=== PATIENT | female | born 1975 | race Caucasian/White ===

== ENCOUNTER → 2017-06-13 | Outpatient (CLI) | payer OTHER ==
--- NOTE | 2017-06-13 14:37 | XR ---
Right shoulder HISTORY: Right shoulder pain 3 views of the right shoulder There is slight superior displacement of the distal clavicle in relation to the acromion. Hypertrophi c change present at the acromioclavicular joint. Bone mineralization and joint spaces otherwise maint ained. Right lung apex as visualized is normal. IMPRESSION: Correlate for acromioclavicular separation.
== END | disposition home or self-care (01) ==
LOC: RADXRMAIN 10:54
PROVIDERS: ATTEND Family Medicine
DX: M25.511 Pain in right shoulder (principal)

== ENCOUNTER → 2017-10-03 | Outpatient (CLI) | payer OTHER ==
--- NOTE | 2017-10-04 10:31 | MM ---
Reason for exam: screening (asymptomatic). Last mammogram was performed 2 years and 5 months ago. History: Stereotactic core biopsy of the right breast, 1997. Taking hormonal contraceptives for 27 years. Physical Findings: A clinical breast exam by your physician is recommended on an annual basis and results should be correlated with mammographic findings. MG Screening Mammo w CAD Bilateral CC and MLO view(s) were taken. Prior study comparison: April 24, 2015, bilateral MG screening mammo w CAD. September 14, 2010, mammogram, performed at [facility]. The breast tissue is heterogeneously dense. This may lower the sensitivity of mammography. Developing asymmetry left upper outer quadrant, MLO view appears smooth, CC view appears irregular, may be two asymmetries. Additional work up recommended. ASSESSMENT: Incomplete: need additional imaging evaluation, BI-RAD 0 RECOMMENDATION: Special view mammogram of the left breast. If lesion persists on supplemental views, image directed ultrasound is recommended. [facility] will attempt to contact patient to return for supplemental views and ultrasound if indicated.
== END | disposition home or self-care (01) ==
LOC: RADMAMWWP 07:16
PROVIDERS: ATTEND Obstetrics & Gynecology
DX: Z12.31 Encounter for screening mammogram for malignant neoplasm of breast (principal)
CPT/HCPCS: 77067

== ENCOUNTER → 2017-10-12 | Outpatient (CLI) | payer OTHER ==
--- NOTE | 2017-10-13 07:32 | MM ---
Reason for exam: additional evaluation requested from abnormal screening. Last mammogram was performed less than 1 month ago. History: Stereotactic core biopsy of the right breast, 1997. Taking hormonal contraceptives for 27 years. Physical Findings: Nurse did not find any significant physical abnormalities on exam. MG Work Up Mamm w CAD LT Spot compression CC, spot compression MLO, and LM view(s) were taken of the left breast. Prior study comparison: October 03, 2017, bilateral MG screening mammo w CAD. April 24, 2015, bilateral MG screening mammo w CAD. There are scattered fibroglandular densities. There is no discrete abnormality at CC compression. Mole marked left upper MLO view corresponds to MLO finding. These results were verbally communicated with the patient and result sheet given to the patient on 10/12/17. ASSESSMENT: Benign, BI-RAD 2 RECOMMENDATION: Return to routine screening mammogram schedule for both breasts. Manage patient on a clinical basis. Dimpling noted on right breast on clinical exam.
== END | disposition home or self-care (01) ==
LOC: RADMAMWWP 15:41
PROVIDERS: ATTEND Obstetrics & Gynecology
DX: R92.8 Other abnormal and inconclusive findings on diagnostic imaging of breast (principal)
CPT/HCPCS: 77065

== ENCOUNTER → 2018-03-23 | Outpatient (CLI) | payer OTHER ==
--- NOTE | 2018-03-25 10:18 | CT ---
EXAMINATION TYPE: CT chest w con DATE OF EXAM: 03/23/2018 COMPARISON: None HISTORY: Chest pain and shortness of breath. CT DLP: 440.7 mGycm Automated exposure control for dose reduction was used. CONTRAST: CT scan of the chest is performed with IV Contrast, patient injected with 100ml mL of Isovue M300. FINDINGS: LUNGS: The lungs are grossly clear, there is no concerning parenchymal mass or nodule identified. T here is no pleural effusion or pneumothorax seen. The tracheobronchial tree is patent. MEDIASTINUM: There are no greater than 1 cm hilar or mediastinal lymph nodes. No pericardial effusi on is seen. Thoracic aorta is of normal caliber. The heart is not enlarged. UPPER ABDOMEN: No significant abnormality appreciated. OTHER: Incidental focal eventration left hemidiaphragm. IMPRESSION: 1. No significant abnormality to account for the patient's symptoms.
== END | disposition home or self-care (01) ==
LOC: RADCTMAIN 16:32
PROVIDERS: ATTEND Physician Assistant Medical
DX: R06.02 Shortness of breath (principal)
CPT/HCPCS: 71260; Q9967

== ENCOUNTER → 2018-07-26 | Outpatient (CLI) | payer OTHER ==
--- NOTE | 2018-07-26 13:27 | XR ---
EXAMINATION TYPE: XR chest 2V DATE OF EXAM: 07/26/2018 COMPARISON: Chest CT 03/23/2018 HISTORY: Cough TECHNIQUE: Frontal and lateral views of the chest are obtained. FINDINGS: There is no focal air space opacity, pleural effusion, or pneumothorax seen. The cardiac silhouette size is within normal limits. The osseous structures are intact. Prominent lung volumes suggest underlying COPD. There is some bronchial wall thickening. Thoracic spondylosis is noted. Surg ical clips present in the right upper quadrant. IMPRESSION: Correlate for possible bronchitis, reactive airways disease. Follow-up as indicated.
== END | disposition home or self-care (01) ==
LOC: RADXRYALE 08:56
PROVIDERS: ATTEND Physician Assistant Medical
DX: R05 Cough (principal)
CPT/HCPCS: 71046

== ENCOUNTER → 2018-08-23 | Outpatient (CLI) | payer OTHER ==
--- NOTE | 2018-08-23 13:29 | US ---
EXAMINATION TYPE: US pelvis complete transvag DATE OF EXAM: 08/23/2018 COMPARISON: NONE CLINICAL HISTORY: N92.6 Irregular menstruation, unspecified. Ablation x 5 years, spotting TECHNIQUE: Transvaginal (TV) and Transabdominal (TA) . Transabdominal sonographic images of the pel vis were acquired. Transvaginal sonographic images were medically necessary to better assess the fol lowing anatomy: Endometrium, ovaries Date of LMP: Unknown, EXAM MEASUREMENTS: Uterus: 6.6 x 3.3 x 3.1 cm Endometrial Stripe: 0.3 cm Right Ovary: 2.3 x 1.2 x 1.1 cm 1. Uterus: Retroverted Appears heterogenous, no prominent masses or lesions visualized 2. Endometrium: Limited visualization. Possible fluid seen in endometrial canal at PAT. 3. Right Ovary: wnl, single follicle appearing lesion visualized 4. Left Ovary: Obscured by overlying bowel gas 5. Bilateral Adnexa: wnl 6. Posterior cul-de-sac: free fluid Cervix- multiple nabothian cysts with internal echoes visualized. Cervical canal appears thickened/ prominent. Fluid visualized within canal. IMPRESSION: 1. Uterine myometrium is heterogeneous which is nonspecific. Can occasionally be seen with diffuse fi broid change. However, no discrete fibroids are identified. 2. There is a small amount of fluid within the endometrial and cervical canal correlate for vaginal b leeding or discharge. Additionally, on the cervix appears prominent in size and possibly thickened re commend direct evaluation of the cervix to exclude mass.
--- NOTE | 2018-08-23 13:37 | US ---
EXAMINATION TYPE: US abdomen complete DATE OF EXAM: 08/23/2018 COMPARISON: NONE CLINICAL HISTORY: N92.6 Irregular menstruation, unspecified. RUQ pain, GB removed EXAM MEASUREMENTS: Liver Length: 13.2 cm CBD: 0.5 cm CHD: 0.5 cm Spleen: 8.6 cm Right Kidney: 9.1 x 4.8 x 4.4 cm Left Kidney: 9.8 x 3.6 x 5.3 cm Pancreas: Limited by overlying bowel gas Liver: wnl Gallbladder: Surgically absent Evidence for sonographic Varghese's sign: neg CBD: wnl CHD: wnl Spleen: wnl Right Kidney: wnl Left Kidney: wnl Upper IVC: wnl Abd Aorta: Limited visualization due to overlying bowel gas, No AAA as visualized. IMPRESSION: 1. Postcholecystectomy. No acute findings identified.
== END | disposition home or self-care (01) ==
LOC: RADUSWWP 12:09
PROVIDERS: ATTEND Physician Assistant Medical
DX: N85.8 Other specified noninflammatory disorders of uterus (principal); N92.6 Irregular menstruation, unspecified; R10.11 Right upper quadrant pain; Z90.49 Acquired absence of other specified parts of digestive tract
CPT/HCPCS: 76700; 76830; 76856

== ENCOUNTER → 2018-09-07 | Outpatient (CLI) | payer OTHER ==
--- NOTE | 2018-09-07 11:48 | XR ---
Right hand HISTORY: Pain and swelling, trauma to the fifth metacarpal 4 views of the right hand No comparisons There is soft tissue swelling at the level of the fifth metacarpal. Cortical irregularity is present at the proximal fifth metacarpal with associated lucency. No evident dislocation. IMPRESSION: Proximal fifth metacarpal fracture
== END | disposition home or self-care (01) ==
LOC: RADXRYALE 10:13
PROVIDERS: ATTEND Physician Assistant Medical
DX: S62.396A Other fracture of fifth metacarpal bone, right hand, initial encounter for closed fracture (principal)

== ENCOUNTER → 2018-09-10 | Outpatient (CLI) | payer OTHER ==
--- NOTE | 2018-09-10 11:27 | CT ---
EXAMINATION TYPE: CT abdomen pelvis w con DATE OF EXAM: 09/10/2018 HISTORY: Right upper quadrant pain CT DLP: 1628.9mGycm Automated Exposure Control for Dose Reduction was Utilized. CONTRAST: CT scan of the abdomen and pelvis is performed with IV Contrast, patient injected with 80 mL of Isovu e 300. COMPARISON: 05/31/2013 CT and pelvic ultrasound dated 08/23/2018. FINDINGS: LUNG BASES: Very trace right pleural effusion is appreciated. Remainder of the lungs are grossly unre markable as visualized.. LIVER/GB: No significant abnormality is appreciated within the liver. Gallbladder surgically absent PANCREAS: No significant abnormality is seen. SPLEEN: No significant abnormality is seen. No splenomegaly. ADRENALS: No significant abnormality is seen. KIDNEYS: Kidneys enhance and excrete symmetrically without hydronephrosis. BOWEL: There is a small paraesophageal hernia seen left lateral the distal esophagus with retained co ntrast in the hernia defect and distal esophagus. UTERUS/ADNEXA: Again there is bulkiness of the cervix on coronal imaging and direct visualization is recommended. LYMPH NODES: No greater than 1cm abdominal or pelvic lymph nodes are appreciated. OSSEOUS STRUCTURES: Mild degenerative changes of the spine are present. IMPRESSION: 1. Small paraesophageal hiatal hernia with contrast in the hernia sac and distal esophagus that may b e retained or relate to gastroesophageal reflux. 2. Redemonstration of prominence of the cervix. Direct visualization is again recommended to exclude cervical neoplasm. 3. Very trace right pleural effusion.
== END | disposition home or self-care (01) ==
LOC: RADCTMAIN 07:44
PROVIDERS: ATTEND Family Medicine
DX: K44.9 Diaphragmatic hernia without obstruction or gangrene (principal); D72.828 Other elevated white blood cell count; R10.11 Right upper quadrant pain; R19.01 Right upper quadrant abdominal swelling, mass and lump; Z01.812 Encounter for preprocedural laboratory examination
CPT/HCPCS: 82565; 84520; 74177; 36415; Q9967 ×2

== ENCOUNTER → 2018-10-03 | Outpatient (CLI) | payer OTHER ==
--- NOTE | 2018-10-03 17:02 | XR ---
EXAMINATION TYPE: XR hand complete RT DATE OF EXAM: 10/03/2018 COMPARISON: 09/07/2018 HISTORY: Follow-up fracture fifth metacarpal TECHNIQUE: Three views are submitted. FINDINGS: A persistent displaced fracture base proximal phalanx fifth digit unchanged in appearance. No callus formation. Soft tissue edema persists. Remaining osseous structures intact. IMPRESSION: 1. Persistent displaced fracture base proximal phalanx fifth digit there may be slight interval incre ase in the amount of displacement relative to the prior exam. No significant callus formation.
== END | disposition home or self-care (01) ==
LOC: RADXRYALE 15:03
PROVIDERS: ATTEND Physician Assistant Medical
DX: S62.616A Displaced fracture of proximal phalanx of right little finger, initial encounter for closed fracture (principal)

== ENCOUNTER → 2018-11-28 | Outpatient (CLI) | payer OTHER ==
--- NOTE | 2018-11-28 14:08 | US ---
EXAMINATION TYPE: US thyroid st tissue head/neck DATE OF EXAM: 11/28/2018 COMPARISON: NONE CLINICAL HISTORY: R94.6 Abnormal results of thyroid function studies. Abnormal thyroid function, fati yamilet, weight gain, difficulty swallowing GLAND SIZE: Right Lobe: 3.3 x 1.3 x 1.2 cm Overall Parenchyma: homogenous Left Lobe: 3.3 x 1.2 x 1.4 cm Overall Parenchyma: homogeneous Isthmus Thickness: 0.2cm NODULES RIGHT: # of nodules measured on right: 0 LEFT: # of nodules measured on left: 0 ISTHMUS: # of nodules measured in the isthmus: 0 Bilateral neck scanned, no evidence of lymphadenopathy. IMPRESSION: Small thyroid gland, no discrete thyroid nodule.
== END | disposition home or self-care (01) ==
LOC: RADUSMAIN 08:03
PROVIDERS: ATTEND Family Medicine
DX: R94.6 Abnormal results of thyroid function studies (principal)
CPT/HCPCS: 76536

== ENCOUNTER → 2021-07-28 | Outpatient (CLI) | payer OTHER ==
--- NOTE | 2021-07-29 14:03 | MM ---
Reason for exam: screening (asymptomatic). Last mammogram was performed 3 years and 10 months ago. History: Patient is postmenopausal. Stereotactic core biopsy of the right breast, 1997. Taking hormonal contraceptives for 27 years. Physical Findings: A clinical breast exam by your physician is recommended on an annual basis and results should be correlated with mammographic findings. MG 3D Screening Mammo W/Cad Bilateral CC and MLO view(s) were taken. Prior study comparison: October 12, 2017, left breast MG work up mamm w CAD LT. October 03, 2017, bilateral MG screening mammo w CAD. The breast tissue is heterogeneously dense. This may lower the sensitivity of mammography. There is no discrete abnormality. No significant changes when compared with prior studies. ASSESSMENT: Negative, BI-RAD 1 RECOMMENDATION: Routine screening mammogram of both breasts in 1 year.
== END | disposition home or self-care (01) ==
LOC: RADMAMWWP 07:24
PROVIDERS: ATTEND Family Medicine
DX: Z12.31 Encounter for screening mammogram for malignant neoplasm of breast (principal); Z78.0 Asymptomatic menopausal state
CPT/HCPCS: 77063; 77067

== ENCOUNTER 2021-11-06 21:17 | Emergency (ER) | payer BC, OTHER ==
[2021-11-06] MEDS ORDERED: HYDROcodone/APAP 5-325MG 1 EACH TAB PO STA (22:48)
--- NOTE | 2021-11-06 23:21 | ED ---
General Adult HPI - General Chief complaint: Dental/Oral Stated complaint: Dental Pain Time Seen by Provider: 11/06/21 21:50 Source: patient, RN notes reviewed Mode of arrival: ambulatory Limitations: no limitations - History of Present Illness Initial comments: 46-year-old female presents to the emergency department with complaints of dental pain, onset 2 hours prior to arrival. Patient states she has has a broken tooth, though states it has been this way for several months without issue. Patient states that the nerve root is now exposed causing her discomfort. States she has been in between jobs and has not been to the dentist recently. Denies any fever, swelling, trismus, difficulty swallowing, or difficulty breathing. - Related Data Home Medications Medication Instructions Recorded Confirmed Zolpidem Tartrate [Ambien Cr] 6.25 mg PO HS PRN 04/24/14 06/18/15 Docusate [Colace] 100 mg PO DAILY 04/25/14 06/18/15 Baclofen 5 mg PO HS 04/02/15 06/18/15 Levonorgestrel/Ethin.estradiol 1 tab PO DAILY 04/23/15 06/18/15 [Altavera-28 Tablet] nadoloL [Nadolol] 40 mg PO HS 04/23/15 06/18/15 Naproxen 500 mg PO DAILY PRN 04/27/15 06/18/15 Omeprazole 40 mg PO AC-BRKFST 04/27/15 06/18/15 Previous Rx's Medication Instructions Recorded HYDROcodone/APAP 5-325MG [[place] 5] 1 each PO Q6HR PRN #6 tab 11/06/21 Ibuprofen [Motrin] 600 mg PO Q8HR PRN #20 tab 11/06/21 Allergies Allergy/AdvReac Type Severity Reaction Status Date / Time Penicillins Allergy Unknown Verified 11/06/21 21:22 Childhood Sulfa (Sulfonamide Allergy Unknown Verified 11/06/21 21:22 Antibiotics) Childhood Review of Systems ROS Statement: Those systems with pertinent positive or pertinent negative responses have been documented in the HPI. ROS Other: All systems not noted in ROS Statement are negative. Past Medical History Additional Past Medical History / Comment(s): hx rapid heart beat History of Any Multi-Drug Resistant Organisms: None Reported Past Surgical History: Cholecystectomy, Hernia Repair, Hysterectomy, Uterine Ablation Additional Past Surgical History / Comment(s): LAPAROSCOPIES. D & C. COLONOSCOPY. HEMORRHOIDECTOMY. SPHINCTEROTOMY. FISTULOTOMY. FISTULOTOMY Past Anesthesia/Blood Transfusion Reactions: Motion Sickness, Postoperative Nausea & Vomiting (PONV) Past Psychological History: Depression Smoking Status: Never smoker Past Alcohol Use History: Occasional Past Drug Use History: None Reported - Past Family History Mother History Unknown: Yes Father Additional Family Medical History / Comment(s): "HEART ISSUES" General Exam Limitations: no limitations General appearance: alert, in distress (Well-developed, well-nourished female in moderate distress due to pain. Initial temperature 98.3, pulse 88, respirations 18, blood pressure 112/76, pulse ox 97% on room air.) Head exam: Present: atraumatic, normocephalic, normal inspection Eye exam: Present: normal appearance. Absent: scleral icterus, conjunctival injection, periorbital swelling, periorbital tenderness ENT exam: Present: mucous membranes moist Expanded Teeth exam: Present: dental caries (Multiple dental caries), dental tenderness # (13 & 14), other (No evidence of infection or abscess; no facial swelling) Throat exam: normal inspection Neck exam: Present: normal inspection, full ROM. Absent: lymphadenopathy Respiratory exam: Present: normal lung sounds bilaterally. Absent: respiratory distress, wheezes, rales, rhonchi, stridor Cardiovascular Exam: Present: regular rate, normal rhythm, normal heart sounds. Absent: systolic murmur, diastolic murmur, rubs, gallop, clicks GI/Abdominal exam: Present: soft, normal bowel sounds. Absent: distended, tenderness, guarding, rebound, rigid Neurological exam: Present: alert, oriented X3, normal gait Psychiatric exam: Present: anxious (Patient appears anxious and is concerned about achieving appropriate follow-up as she is again dental coverage at this time) Skin exam: Present: warm, dry, intact, normal color Course Vital Signs 11/06/21 11/06/21 21:22 23:42 Temperature 98.3 F 98.1 F Pulse Rate 88 82 Respiratory 18 20 Rate Blood Pressure 112/76 116/73 O2 Sat by Pulse 97 98 Oximetry Medical Decision Making - Medical Decision Making This is a 46-year-old female who presents to the emergency department for evaluation of dental pain. Upon exam, patient appears anxious and uncomfortable. She is tearful as she discusses her dental pain and her anticipated difficulty achieving follow-up care as she does not have dental insurance at this time. She has multiple dental caries; tooth #13 appears decayed, though there is no evidence of infectious process. She was given a dose of [place] while present in the emergency department. She will be prescribed Motrin and a very limited supply of [place] to treat her pain. No antibiotic was prescribed as this does not appear to be infectious in nature. She is implored to make arrangements to see a dentist as soon as possible. She was provided with the [facility] for local follow-up. Return parameters were discussed in detail. Patient verbalizes understanding and agrees with this plan. Attending: Boo. Disposition Clinical Impression: Pain, dental Disposition: HOME SELF-CARE Condition: Stable Instructions (If sedation given, give patient instructions): Toothache (ED) Additional Instructions: Take Motrin as needed for mild discomfort. [place] is for more severe pain. Please follow-up with your dentist as soon as possible. Return to the emergency department with any new, worsening, or concerning symptoms. [address] [id number]. Prescriptions: Ibuprofen [Motrin] 600 mg PO Q8HR PRN #20 tab PRN Reason: Pain HYDROcodone/APAP 5-325MG [[place] 5] 1 each PO Q6HR PRN #6 tab PRN Reason: Pain Is patient prescribed a controlled substance at d/c from ED?: Yes When asked, does pt state using other controlled substances?: No If prescribed controlled substance>3 days was MAPS reviewed?: Prescribed <3 Days If opioid is for acute pain is fill amount 7 days or less?: Yes If Rx opioid, was Start Talking consent form obtained?: Yes Referrals: Tyson Branch DO [Primary Care Provider] - 1-2 days Time of Disposition: 23:20 Decision Time: 23:20
[2021-11-06 23:43] VITALS: BP 116/73; PULSE 82; RESP 20; TEMP 98.1
== END 2021-11-06 23:42 | disposition home or self-care (01) ==
LOC: EC 21:17
DX: K02.9 Dental caries, unspecified (principal); F32.A Depression, unspecified; Z79.899 Other long term (current) drug therapy
CPT/HCPCS: 99282

== ENCOUNTER → 2022-03-23 | Outpatient (CLI) | payer MEDICAID ==
[2022-03-23 11:31] LABS: Basophils % (A) 0.5 %; Eosinophils # (A) 0.14 X 10*3/uL (0.04-0.35); Eosinophils % (A) 1.5 %; HCT 38.9 % (37.2-46.3); Lymphocytes # (A) 3.34 X 10*3/uL (0.90-5.00); Lymphocytes % (A) 36.7 %; MCH 30.5 pg (27.0-32.0); MCHC 33.4 g/dL (32.0-37.0); MCV 91.3 fL (80.0-97.0); Monocytes # (A) 0.51 X 10*3/uL (0.20-1.00); Monocytes % (A) 5.6 %; Neutrophils # (A) 5.03 X 10*3/uL (1.80-7.70); Neutrophils % (A) 55.4 %; Platelet Count 321 X 10*3/uL (140-440); RBC 4.26 X 10*6/uL (4.10-5.20); RDW 12.8 % (11.5-14.5)
[2022-03-23 11:32] LABS: ALT 7 U/L (8-44); AST 16 U/L (13-35); African American GFR (CKD) 88.2 (60.0-200.0); Albumin 3.8 g/dL (3.8-4.9); Albumin/Globulin Ratio 1.27 (1.60-3.17); Alkaline Phosphatase 31 U/L (41-126); Basophils # (A) 0.05 X 10*3/uL (0.00-0.10); Blood Urea Nitrogen 9.9 mg/dL (9.0-27.0); Calcium 9.5 mg/dL (8.7-10.3); Carbon Dioxide 24.1 mmol/L (20.0-27.5); Chloride 105 mmol/L (96-109); Chol/HDL Ratio 2.27 Ratio; Glucose 100 mg/dL (70-110); Immature Grans, Automated 0.3 %; LDL Cholesterol,Calculated 68.8 mg/dL (0.0-131.0); NRBC Per 100 WBC 0 /100 WBCS (0.0-0.0); Non-African American GFR(CKD) 76.1 (60.0-200.0); Potassium 4.6 mmol/L (3.5-5.5); Sodium 139 mmol/L (135-145); Total Protein 6.8 g/dL (6.2-8.2); VLDL Calculation 16.68 mg/dL (5.00-40.00)
== END | disposition home or self-care (01) ==
LOC: LABWHC1 07:44
PROVIDERS: ATTEND Physician Assistant Medical
DX: Z00.00 Encounter for general adult medical examination without abnormal findings (principal); Z13.220 Encounter for screening for lipoid disorders; Z13.228 Encounter for screening for other metabolic disorders; Z13.29 Encounter for screening for other suspected endocrine disorder; F41.9 Anxiety disorder, unspecified; N80.9 Endometriosis, unspecified; E66.01 Morbid (severe) obesity due to excess calories
CPT/HCPCS: 36415; 80053; 80061; 84439; 84443; 85025

== ENCOUNTER → 2022-08-09 | Outpatient (CLI) | payer MEDICAID ==
[2022-08-09 23:12] LABS: Estradiol 57.4 pg/mL
== END | disposition home or self-care (01) ==
LOC: LABWHC1 11:11
PROVIDERS: ATTEND Obstetrics & Gynecology
DX: N95.1 Menopausal and female climacteric states (principal)
CPT/HCPCS: 36415; 82670; 84144; 84403; 84443

== ENCOUNTER → 2022-08-19 | Outpatient (CLI) | payer MEDICAID ==
--- NOTE | 2022-08-19 07:57 | MM ---
Reason for Exam: Screening (asymptomatic). Last mammogram was performed 1 year(s) and 1 month(s) ago. Patient History: Menarche at age 11. First Full-Term at age 21. Left ovary removed at age 44. Right ovary removed at age 44. Hysterectomy at age 44. Postmenopausal. Patient used Hormonal Contraceptives for 27 years. 1997, Stereotactic Core Biopsy on the Right side. Risk Values: Rachael 5 year model risk: 1.1%. NCI Lifetime model risk: 9.8%. Prior Study Comparison: 10/03/2017 Bilateral Screening Mammogram, [facility]. 10/12/2017 Left Diagnostic Mammogram, [facility]. 07/28/2021 Bilateral Screening Mammogram, [facility]. Tissue Density: There are scattered fibroglandular densities. Findings: Analyzed By CAD. There is no suspicious group of microcalcifications or new suspicious mass in either breast. Overall Assessment: Negative, BI-RAD 1 Management: Screening Mammogram of both breasts in 1 year. A clinical breast exam by your physician is recommended on an annual basis and results should be correlated with mammographic findings. Electronically signed and approved by: Bebo Taylor M.D.
== END | disposition home or self-care (01) ==
LOC: RADMAMWWP 06:52
PROVIDERS: ATTEND Family Medicine
DX: Z12.31 Encounter for screening mammogram for malignant neoplasm of breast (principal); Z78.0 Asymptomatic menopausal state
CPT/HCPCS: 77063; 77067

== ENCOUNTER 2023-01-16 10:09 | Emergency (ER) | payer MEDICAID ==
[2023-01-16 10:29] VITALS: BP 108/75; PULSE 78; RESP 18; TEMP 98
--- NOTE | 2023-01-16 10:54 | ED ---
Upper Extremity HPI - General Chief Complaint: Extremity Injury, Upper Stated Complaint: R wrist injury Time Seen by Provider: 01/16/23 10:30 Source: patient, RN notes reviewed Mode of arrival: ambulatory Limitations: no limitations - History of Present Illness Initial Comments: This is a 47-year-old female who presents to the emergency department for right wrist pain. Patient was lifting her nephew up at the park yesterday, when she twisted her right wrist wrong. She has since had increasing pain to this area. She is taking Advil with no relief in symptoms. She does report concerns associated with a previous injury to this area. Denies any fevers, chills, sore throat, cough, dyspnea, chest pain, palpitations, abdominal pain, nausea, vomiting, diarrhea, back pain, or headaches. MD Complaint: Injury to:: right, wrist Onset/Timin -: days(s) - Related Data Home Medications Medication Instructions Recorded Confirmed Zolpidem Tartrate [Ambien Cr] 6.25 mg PO HS PRN 04/24/14 06/18/15 Docusate [Colace] 100 mg PO DAILY 04/25/14 06/18/15 Baclofen 5 mg PO HS 04/02/15 06/18/15 Levonorgestrel/Ethin.estradiol 1 tab PO DAILY 04/23/15 06/18/15 [Altavera-28 Tablet] nadoloL [Nadolol] 40 mg PO HS 04/23/15 06/18/15 Naproxen 500 mg PO DAILY PRN 04/27/15 06/18/15 Omeprazole 40 mg PO AC-BRKFST 04/27/15 06/18/15 Previous Rx's Medication Instructions Recorded HYDROcodone/APAP 5-325MG [[place] 5] 1 each PO Q6HR PRN #6 tab 11/06/21 Ibuprofen [Motrin] 600 mg PO Q8HR PRN #20 tab 11/06/21 Allergies Allergy/AdvReac Type Severity Reaction Status Date / Time Penicillins Allergy Unknown Verified 01/16/23 10:29 Childhood Sulfa (Sulfonamide Allergy Unknown Verified 01/16/23 10:29 Antibiotics) Childhood Review of Systems ROS Statement: Those systems with pertinent positive or pertinent negative responses have been documented in the HPI. ROS Other: All systems not noted in ROS Statement are negative. Past Medical History Additional Past Medical History / Comment(s): hx rapid heart beat History of Any Multi-Drug Resistant Organisms: None Reported Past Surgical History: Cholecystectomy, Hernia Repair, Hysterectomy, Uterine Ablation Additional Past Surgical History / Comment(s): LAPAROSCOPIES. D & C. COLONOSCOPY. HEMORRHOIDECTOMY. SPHINCTEROTOMY. FISTULOTOMY. FISTULOTOMY Past Anesthesia/Blood Transfusion Reactions: Motion Sickness, Postoperative Nausea & Vomiting (PONV) Past Psychological History: Depression Smoking Status: Never smoker Past Alcohol Use History: Occasional Past Drug Use History: None Reported - Past Family History Mother History Unknown: Yes Father Additional Family Medical History / Comment(s): "HEART ISSUES" General Exam Limitations: no limitations General appearance: alert, in no apparent distress Head exam: Present: atraumatic, normocephalic, normal inspection Respiratory exam: Present: normal lung sounds bilaterally. Absent: respiratory distress, wheezes, rales, rhonchi, stridor Cardiovascular Exam: Present: regular rate, normal rhythm, normal heart sounds. Absent: systolic murmur, diastolic murmur, rubs, gallop, clicks Extremities exam: Present: other (Tenderness to palpation over the lateral aspect of the right wrist. No overlying deformities, swelling, or ecchymosis. Range of motion is limited by pain. 2+ radial pulses.) Neurological exam: Present: alert, oriented X3, CN II-XII intact Psychiatric exam: Present: normal affect, normal mood Skin exam: Present: warm, dry, intact, normal color. Absent: rash Course Vital Signs 01/16/23 10:26 Temperature 98 F Pulse Rate 78 Respiratory 18 Rate Blood Pressure 108/75 O2 Sat by Pulse 98 Oximetry Procedures - Orthopedic Splinting/Casting Injury #1 Side: right Upper Extremity Injury Location: wrist Upper Extremity Immobilizer: volar splint Medical Decision Making - Medical Decision Making This is a 47-year-old female who presents to the emergency department for right wrist pain. Was pt. sent in by a medical professional or institution? @ -No Did you speak to anyone other than the patient for history? @ -No Did you review nursing and triage notes? @ -Yes, and I agree, it is accurate with regards to the patient's symptoms. Were old charts reviewed? @ -No Differential Diagnosis? @ -Differential Wrist Pain: Fracture, dislocation, contusion, sprain, this is not meant to be an all- inclusive list. EKG interpreted by me (3pts min.)? @ -Not obtained X-rays interpreted by me (1pt min.)? @ -X-ray of the right wrist obtained. My interpretation identifies a questionable lucency along the ulnar styloid process. CT interpreted by me (1pt min.)? @ -Not obtained U/S interpreted by me (1pt. min.)? @ -Not obtained What testing was considered but not performed? (CT, X-rays, U/S, labs)? Why? @ -None What meds were considered but not given? Why? @ -None Did you discuss the management of the patient with other professionals? @ -No Did you reconcile home meds? @ -No Was smoking cessation discussed for >3mins.? @ -No Was critical care preformed (if so, how long)? @ -No Were there social determinants of health that impacted care today? How? (Homelessness, low income, unemployed, alcoholism, drug addiction, transportation, low edu. Level, literacy, decrease access to med. care, usp, rehab)? @ -No Was there de-escalation of care discussed even if they declined? (Discuss DNR or withdrawal of care, Hospice)? @ -No What co-morbidities impacted this encounter? (DM, HTN, Smoking, COPD, CAD, Cancer, CVA, Hep., AIDS, mental health diagnosis, sleep apnea, morbid obesity)? @ -None Was patient admitted / discharged? @ -Discharged. X-ray of the right wrist obtained revealing a lucency through the ulnar styloid process that may be projectional versus related to a fracture. This is where the patient is experiencing tenderness, and she was thus put in a volar splint. Advised ibuprofen and Tylenol as needed for pain relief and applying ice for 15-20 minutes every 2-3 hours. Orthopedic follow-up provided as well. Undiagnosed new problem with uncertain prognosis? @ -None Drug Therapy requiring intensive monitoring for toxicity (Heparin, Nitro, Insulin, Cardizem)? @ -None Were any procedures done? @ -Volar splint application Diagnosis/symptom? @ -Right ulnar styloid fracture Acute, or Chronic, or Acute on Chronic? @ -Acute Uncomplicated (without systemic symptoms) or Complicated (systemic symptoms)? @ -Uncomplicated Side effects of treatment? @ -None Exacerbation, Progression, or Severe Exacerbation] @ -Not applicable Poses a threat to life or bodily function? @ -May limit her use of the right hand Return precautions reviewed in depth, the patient is instructed to return to the emergency department with any new, worsening, or concerning symptoms. Patient verbalized understanding. This case was discussed in detail with the attending ED physician, Dr. Arreguin. Presentation, findings, and treatment plan discussed in detail as well. - Radiology Data Radiology results: report reviewed, image reviewed Disposition Clinical Impression: Fracture of right ulnar styloid Disposition: HOME SELF-CARE Instructions (If sedation given, give patient instructions): Wrist Fracture in Adults (ED), Splint Care (ED) Additional Instructions: Return to the emergency department with any new, worsening, or concerning symptoms. Alternate with ibuprofen and Tylenol as needed for pain relief. Apply ice for 15-20 minutes every 2-3 hours. Follow up with orthopedics as listed below. Is patient prescribed a controlled substance at d/c from ED?: No Referrals: Tyson Branch DO [Primary Care Provider] - 1-2 days Apoorva Berg DO [Doctor of Osteopathic Medicine] - 1-2 days
--- NOTE | 2023-01-16 11:03 | XR ---
EXAMINATION TYPE: XR wrist complete RT DATE OF EXAM: 01/16/2023 10:54 AM INDICATION: Patient age:Female; 47 years old; Reason for study: Pain after injury; COMPARISON: 10/03/2018 TECHNIQUE: right wrist was examined in the. Frontal, navicular, lateral, and oblique. FINDINGS: No acute osseous pathology, joint dislocation, or joint effusion. No evidence of any soft tissue swelling is seen. There is a lucency through the ulnar styloid process which is seen on one vi ew only. IMPRESSION: Lucency through the ulnar styloid process felt to be projectional. Correlate with point tenderness. O therwise no acute fractures definitively visualized.
[2023-01-16] MEDS ORDERED: IBUPROFEN 600 MG STARTER PACK 4 TAB BTL PO STA (11:32)
[2023-01-16] MEDS ORDERED: ACET/COD 300 MG/30 MG STARTER PACK 6 TAB BTL PO STA (11:32)
== END 2023-01-16 11:48 | disposition home or self-care (01) ==
LOC: EC 10:09
DX: S52.611A Displaced fracture of right ulna styloid process, initial encounter for closed fracture (principal); F32.A Depression, unspecified; Z88.0 Allergy status to penicillin; Z88.2 Allergy status to sulfonamides; Z79.899 Other long term (current) drug therapy; X50.9XXA Other and unspecified overexertion or strenuous movements or postures, initial encounter
CPT/HCPCS: 29515; 99283

== ENCOUNTER 2023-06-01 09:54 | Emergency (ER) | payer MEDICAID ==
[2023-06-01 10:31] LABS: Basophils # (A) 0.1 k/uL (0-0.2); Basophils % (A) 1 %; Eosinophils # (A) 0.3 k/uL (0-0.7); Eosinophils % (A) 2 %; HCT 41.2 % (34.0-46.0); HGB 13.6 gm/dL (11.4-16.0); Lymphocytes # (A) 4.1 k/uL (1.0-4.8); Lymphocytes % (A) 31 %; MCH 30.6 pg (25.0-35.0); MCHC 33.1 g/dL (31.0-37.0); MCV 92.6 fL (80.0-100.0); Mean Platelet Volume 7.9; Monocytes # (A) 0.8 k/uL (0-1.0); Monocytes % (A) 6 %; Neutrophils # (A) 7.8 k/uL (1.3-7.7); Neutrophils % (A) 59 %; Platelet Count 357 k/uL (150-450); RBC 4.45 m/uL (3.80-5.40); RDW 13.2 % (11.5-15.5); WBC 13.2 k/uL (3.8-10.6)
[2023-06-01 10:44] LABS: INR 0.9 (<1.2); Partial Thromboplastin Time 22.2 sec (22.0-30.0); Prothrombin Time 10.1 sec (10.0-12.5)
[2023-06-01 10:50] LABS: ALT 23 U/L (4-34); AST 21 U/L (14-36); African American GFR (CKD) >90 (>60 ml/min/1.73 sqM); Albumin 4.1 g/dL (3.5-5.0); Alkaline Phosphatase 41 U/L (38-126); Anion Gap 4 mmol/L; Blood Urea Nitrogen 14 mg/dL (7-17); Calcium 9.5 mg/dL (8.4-10.2); Carbon Dioxide 31 mmol/L (22-30); Chloride 102 mmol/L (98-107); Glucose 77 mg/dL (74-99); Non-African American GFR(CKD) >90 (>60 ml/min/1.73 sqM); Potassium 4.5 mmol/L (3.5-5.1); Sodium 137 mmol/L (137-145); Total Bilirubin 0.5 mg/dL (0.2-1.3); Total Protein 7.4 g/dL (6.3-8.2)
[2023-06-01 10:58] VITALS: RESP 20; TEMP 98.1
--- NOTE | 2023-06-01 11:08 | XR ---
EXAMINATION TYPE: XR chest 2V DATE OF EXAM: 06/01/2023 COMPARISON: 07/26/2018 TECHNIQUE: PA and lateral views submitted. HISTORY: Chest pain FINDINGS: The lungs are clear and there is no pneumothorax, pleural effusion, or focal pneumonia. Heart size normal and no overt failure. Osseous structures demonstrate hypertrophic and degenerative changes of the spine. Biapical pleural thickening. Hyperexpansion compatible with COPD. Surgical clips in the ri ght upper quadrant. Hyperinflation suggests COPD. IMPRESSION: 1. No acute process.
[2023-06-01 12:15] LABS: Appearance,Urine Clear (Clear); Bilirubin,Urine Negative (Negative); Blood,Urine Negative (Negative); Color,Urine Colorless; Glucose,Urine (UA) Negative (Negative); Ketones,Urine Negative (Negative); Leukocyte Esterase,Urine Negative (Negative); Nitrite,Urine Negative (Negative); PH, Urine 6.5 (5.0-8.0); Protein,Urine Negative (Negative); Specific Gravity,Urine 1.004 (1.001-1.035); Urobilinogen,Urine <2.0 mg/dL (<2.0)
--- NOTE | 2023-06-01 12:19 | ED ---
Chest Pain HPI - General Chief Complaint: Chest Pain Stated Complaint: Dizziness, Blurred Vision Time Seen by Provider: 06/01/23 10:15 Source: patient, RN notes reviewed Mode of arrival: ambulatory Limitations: no limitations - History of Present Illness Initial Comments: 48-year-old female presents emergency Department chief complaint of not feeling well. She states she is at work states that she started feeling like an out of body experience states that she just lightheaded states that she has some heart racing tingling all over when she started doing things about possible stroke. She is currently she feels greatly improved she has no current symptoms. Denies any prior. Dishes no lung disorders. - Related Data Home Medications Medication Instructions Recorded Confirmed Zolpidem Tartrate [Ambien Cr] 6.25 mg PO HS PRN 04/24/14 06/18/15 Docusate [Colace] 100 mg PO DAILY 04/25/14 06/18/15 Baclofen 5 mg PO HS 04/02/15 06/18/15 Levonorgestrel/Ethin.estradiol 1 tab PO DAILY 04/23/15 06/18/15 [Altavera-28 Tablet] nadoloL [Nadolol] 40 mg PO HS 04/23/15 06/18/15 Naproxen 500 mg PO DAILY PRN 04/27/15 06/18/15 Omeprazole 40 mg PO AC-BRKFST 04/27/15 06/18/15 Previous Rx's Medication Instructions Recorded HYDROcodone/APAP 5-325MG [[place] 5] 1 each PO Q6HR PRN #6 tab 11/06/21 Ibuprofen [Motrin] 600 mg PO Q8HR PRN #20 tab 11/06/21 Allergies Allergy/AdvReac Type Severity Reaction Status Date / Time Penicillins Allergy Unknown Verified 06/01/23 10:10 Childhood Sulfa (Sulfonamide Allergy Unknown Verified 06/01/23 10:10 Antibiotics) Childhood Review of Systems ROS Statement: Those systems with pertinent positive or pertinent negative responses have been documented in the HPI. ROS Other: All systems not noted in ROS Statement are negative. EKG Findings - EKG Comments: EKG Findings:: EK:19 sinus rhythm rate of 69 SC 131/77 QT/ QTC 365/384 - EKG Results: EKG: interpreted by LILLY Past Medical History Additional Past Medical History / Comment(s): hx rapid heart beat History of Any Multi-Drug Resistant Organisms: None Reported Past Surgical History: Cholecystectomy, Hernia Repair, Hysterectomy, Uterine Ablation Additional Past Surgical History / Comment(s): LAPAROSCOPIES. D & C. COLONOSCOPY. HEMORRHOIDECTOMY. SPHINCTEROTOMY. FISTULOTOMY. FISTULOTOMY Past Anesthesia/Blood Transfusion Reactions: Motion Sickness, Postoperative Nausea & Vomiting (PONV) Past Psychological History: Depression Smoking Status: Never smoker Past Alcohol Use History: Occasional Past Drug Use History: None Reported - Past Family History Mother History Unknown: Yes Father Additional Family Medical History / Comment(s): "HEART ISSUES" General Exam Limitations: no limitations General appearance: alert, in no apparent distress Head exam: Present: atraumatic, normocephalic, normal inspection Eye exam: Present: normal appearance, PERRL, EOMI. Absent: scleral icterus, conjunctival injection, periorbital swelling ENT exam: Present: normal exam, normal oropharynx, mucous membranes moist Neck exam: Present: normal inspection, full ROM. Absent: tenderness, meningismus, lymphadenopathy Respiratory exam: Present: normal lung sounds bilaterally. Absent: respiratory distress, wheezes, rales, rhonchi, stridor Cardiovascular Exam: Present: regular rate, normal rhythm, normal heart sounds. Absent: systolic murmur, diastolic murmur, rubs, gallop, clicks GI/Abdominal exam: Present: soft, normal bowel sounds. Absent: distended, tenderness, guarding, rebound, rigid Course Vital Signs 06/01/23 06/01/23 06/01/23 10:06 10:10 11:10 Temperature 98.1 F Pulse Rate 72 68 71 Pulse Rate [ 70 Commercial Service Technician ] Respiratory 18 20 20 Rate Blood Pressure 119/83 118/68 122/93 O2 Sat by Pulse 98 98 96 Oximetry Chest Pain MDM - MDM Was pt. sent in by a medical professional or institution (, PA, AUTOMOBILE AND PROPERTY UNDERWRITER, urgent care, hospital, or assisted...) When possible be specific @ -No Did you speak to anyone other than the patient for history (EMS, parent, family, police, friend...)? What history was obtained from this source @ -No Did you review nursing and triage notes (agree or disagree)? Why? @ -I reviewed and agree with nursing and triage notes Were old charts reviewed (outside hosp., previous admission, EMS record, old EKG, old radiological studies, urgent care reports/EKG's, assisted records)? Report findings @ -No old charts were reviewed Differential Diagnosis (chest pain, altered mental status, abdominal pain women, abdominal pain men, vaginal bleeding, weakness, fever, dyspnea, syncope, headache, dizziness, GI bleed, back pain, seizure, CVA, palpatations, mental health, musculoskeletal)? @ -Differential Chest Pain: Stable Angina, Unstable Angina, STEMI, NSTEMI Aortic Dissection, Pneumothorax, Musculoskeletal, Esophageal Spasm GERD, Cholecystitis, Pancreatitis, Zoster, this is not meant to be an all-inclusive list. EKG interpreted by me (3pts min.). @ -As above X-rays interpreted by me (1pt min.). @ -[Chest x-ray two-view no acute process CT interpreted by me (1pt min.). @ -None done U/S interpreted by me (1pt. min.). @ -None done What testing was considered but not performed or refused? (CT, X-rays, U/S, labs)? Why? @ -None What meds were considered but not given or refused? Why? @ -None Did you discuss the management of the patient with other professionals (professionals i.e. , PA, AUTOMOBILE [employer] PROPERTY UNDERWRITER, lab, RT, psych nurse, older adult social work specialist, route returner, teacher, railroad police officer, showcase trimmer)? Give summary @ -No Was smoking cessation discussed for >3mins.? @ -No Was critical care preformed (if so, how long)? @ -No Were there social determinants of health that impacted care today? How? (Homelessness, low income, unemployed, alcoholism, drug addiction, transportation, low edu. Level, literacy, decrease access to med. care, custodial, rehab)? @ -No Was there de-escalation of care discussed even if they declined (Discuss DNR or withdrawal of care, Hospice)? DNR status @ -No What co-morbidities impacted this encounter? (DM, HTN, Smoking, COPD, CAD, Cancer, CVA, ARF, Chemo, Hep., AIDS, mental health diagnosis, sleep apnea, morbid obesity)? @ -None Was patient admitted / discharged? Hospital course, mention meds given and route, prescriptions, significant lab abnormalities, going to OR and other pertinent info. @ -[Discharge patient feels greatly improved she is asymptomatic. Patient had some redness, dizziness with symptoms of anxiety after. Patient feels comfortable with discharge we did offer admission for further evaluation patient declines @ -[No] Drug Therap rquiring intensive monitoring for toxicity (Heparin, Nitro, Insulin, Cardizem)? @ -[No] Were any prceures done? @ -[No] Diagnosis/ @Lightheadedness Acute, or Chronic, or Acute on Chronic? @ -[acute Uncomplicated (without systemic symptoms) or Complicated (systemic symptoms)? @ -[uncomplicated Side efects o treatment? @ -[No] Exacerbatio, rogression, or Severe Exacerbation? @ -[No] Poses a thratto life or bodily function? How? (Chest pain, [place], [place], pneumonia, PE, COPD, DKA, ARF, appy, cholecystitis, CVA, Diverticulitis, Homicidal, Suicidal, threat to staff... and all critical care pts) @ -[No] Disposition Clinical Impression: Lightheadedness Disposition: HOME SELF-CARE Condition: Stable Instructions (If sedation given, give patient instructions): Dizziness (ED) Additional Instructions: Please return to the Emergency Department if symptoms worsen or any other concer ns. Is patient prescribed a controlled substance at d/c from ED?: No Referrals: Tyson Branch DO [Primary Care Provider] - 1-2 days Time of Disposition: 12:23
[2023-06-01 12:39] VITALS: BP 130/68; PULSE 65
== END 2023-06-01 12:32 | disposition home or self-care (01) ==
LOC: EC 09:54
DX: R42 Dizziness and giddiness (principal); Z88.0 Allergy status to penicillin; Z88.2 Allergy status to sulfonamides; Z90.49 Acquired absence of other specified parts of digestive tract; Z86.59 Personal history of other mental and behavioral disorders
CPT/HCPCS: 36415; 71046; 80053; 81003; 83735; 84484; 85025; 85610; 85730; 93005; 99285

== ENCOUNTER 2023-08-02 06:49 | Observation (INO) | payer MEDICAID ==
--- NOTE | 2023-08-02 07:27 | ED ---
Abdominal Pain HPI - General Chief Complaint: Abdominal Pain Stated Complaint: abd pain Time Seen by Provider: 08/02/23 07:01 Source: patient, RN notes reviewed Mode of arrival: ambulatory Limitations: no limitations - History of Present Illness Initial Comments: 48-year-old female presents emergency department with chief complaint of abdominal pain. Patient states that started couple days ago burning sensation located in the right side of her abdomen. Patient had a prior hysterectomy including ovaries 4 years ago, prior cholecystectomy. Patient denies fever but states that she has nausea no change bobs no dysuria pain does radiate to her back. - Related Data Home Medications Medication Instructions Recorded Confirmed nadoloL [Nadolol] 40 mg PO HS 04/23/15 08/02/23 Levothyroxine Sodium [Synthroid] 75 mcg PO DAILY 08/02/23 08/02/23 Progesterone, Micronized 200 mg PO HS 08/02/23 08/02/23 [Progesterone] Sertraline [Zoloft] 25 mg PO HS 08/02/23 08/02/23 Allergies Allergy/AdvReac Type Severity Reaction Status Date / Time Penicillins Allergy Unknown Verified 08/02/23 07:01 Childhood Sulfa (Sulfonamide Allergy Unknown Verified 08/02/23 07:01 Antibiotics) Childhood Review of Systems ROS Statement: Those systems with pertinent positive or pertinent negative responses have been documented in the HPI. ROS Other: All systems not noted in ROS Statement are negative. Past Medical History Additional Past Medical History / Comment(s): hx rapid heart beat History of Any Multi-Drug Resistant Organisms: None Reported Past Surgical History: Cholecystectomy, Hernia Repair, Hysterectomy, Uterine Ablation Additional Past Surgical History / Comment(s): LAPAROSCOPIES. D & C. COLONOSCOPY. HEMORRHOIDECTOMY. SPHINCTEROTOMY. FISTULOTOMY. FISTULOTOMY Past Anesthesia/Blood Transfusion Reactions: Motion Sickness, Postoperative Nausea & Vomiting (PONV) Past Psychological History: Depression Smoking Status: Never smoker Past Alcohol Use History: Occasional Past Drug Use History: None Reported - Past Family History Mother History Unknown: Yes Father Additional Family Medical History / Comment(s): "HEART ISSUES" General Exam Limitations: no limitations General appearance: alert, in no apparent distress Head exam: Present: atraumatic, normocephalic, normal inspection Eye exam: Present: normal appearance, PERRL, EOMI. Absent: scleral icterus, conjunctival injection, periorbital swelling Respiratory exam: Present: normal lung sounds bilaterally. Absent: respiratory distress, wheezes, rales, rhonchi, stridor Cardiovascular Exam: Present: regular rate, normal rhythm, normal heart sounds. Absent: systolic murmur, diastolic murmur, rubs, gallop, clicks GI/Abdominal exam: Present: soft, tenderness, normal bowel sounds. Absent: distended, guarding, rebound, rigid Back exam: Absent: CVA tenderness (R), CVA tenderness (L) Neurological exam: Present: alert Skin exam: Present: warm, dry, intact, normal color. Absent: rash Course Vital Signs 08/02/23 08/02/23 08/02/23 06:59 08:40 10:05 Temperature 98 F Pulse Rate 83 75 66 Respiratory 18 18 18 Rate Blood Pressure 113/65 110/71 115/75 O2 Sat by Pulse 94 L 97 99 Oximetry 08/02/23 10:10 Temperature Pulse Rate 68 Respiratory 18 Rate Blood Pressure 115/75 O2 Sat by Pulse 100 Oximetry Medical Decision Making - Medical Decision Making Was pt. sent in by a medical professional or institution (, PA, BACKBREAKER, urgent care, hospital, or penitentiary...) When possible be specific @ -No Did you speak to anyone other than the patient for history (EMS, parent, family, police, friend...)? What history was obtained from this source @ -No Did you review nursing and triage notes (agree or disagree)? Why? @ -I reviewed and agree with nursing and triage notes Were old charts reviewed (outside hosp., previous admission, EMS record, old EKG, old radiological studies, urgent care reports/EKG's, penitentiary records)? Report findings @ -No old charts were reviewed Differential Diagnosis (chest pain, altered mental status, abdominal pain women, abdominal pain men, vaginal bleeding, weakness, fever, dyspnea, syncope, headache, dizziness, GI bleed, back pain, seizure, CVA, palpatations, mental health, musculoskeletal)? @ -Differential Abdominal Pain Women: Appendicitis, Cholecystitis, diverticulosis, ischemic bowel, pancreatitis, hepatitis, UTI, gastroenteritis, AAA, incarcerated hernia, bowel obstruction, constipation, inflammatory bowel, hepatitis, peptic ulcer disease, splenic infarction, perforated viscus, vulvitis, ovarian torsion, PID, kidney stone, placenta abruption, this is not meant to be an all-inclusive list EKG interpreted by me (3pts min.). @ -As above X-rays interpreted by me (1pt min.). @ -None done CT interpreted by me (1pt min.). @ -CT abdomen pelvis showing evidence of dilated appendix, possible surrounding fluid without rupture. U/S interpreted by me (1pt. min.). @ -None done What testing was considered but not performed or refused? (CT, X-rays, U/S, labs)? Why? @ -None What meds were considered but not given or refused? Why? @ -None Did you discuss the management of the patient with other professionals (professionals i.e. , PA, BACKBREAKER, lab, RT, psych nurse, social media intern, track coach, teacher, patient safety officer, case worker)? Give summary @ -Dr. Mclean for admission Was smoking cessation discussed for >3mins.? @ -No Was critical care preformed (if so, how long)? @ -No Were there social determinants of health that impacted care today? How? (Judi elessness, low income, unemployed, alcoholism, drug addiction, transportation, low edu. Level, literacy, decrease access to med. care, senior living, rehab)? @ -No Was there de-escalation of care discussed even if they declined (Discuss DNR or withdrawal of care, Hospice)? DNR status @ -No What co-morbidities impacted this encounter? (DM, HTN, Smoking, COPD, CAD, Cancer, CVA, ARF, Chemo, Hep., AIDS, mental health diagnosis, sleep apnea, morbid obesity)? @ -None Was patient admitted / discharged? Hospital course, mention meds given and route, prescriptions, significant lab abnormalities, going to OR and other pertinent info. @ -Admitted patient be admitted to surgery for acute appendicitis. Patient s tarted on Rocephin and Flagyl as she has an allergy to penicillin products. Patient given further analgesics, hydration. EKG was ordered. Undiagnosed new problem with uncertain prognosis? @ -No Drug Therapy requiring intensive monitoring for toxicity (Heparin, Nitro, Insulin, Cardizem)? @ -No Were any procedures done? @ -No Diagnosis/symptom? @ -Acute appendicitis Acute, or Chronic, or Acute on Chronic? @ -Acute Uncomplicated (without systemic symptoms) or Complicated (systemic symptoms)? @ -Complicated Side effects of treatment? @ -No Exacerbation, Progression, or Severe Exacerbation? @ -No Poses a threat to life or bodily function? How? (Chest pain, [place], [place], pneumonia, PE, COPD, DKA, ARF, appy, cholecystitis, CVA, Diverticulitis, Homicidal, Suicidal, threat to staff... and all critical care pts) @ -Yes surgical risk - Lab Data Result diagrams: 08/02/23 07:38 08/02/23 07:38 Lab Results 08/02/23 08/02/23 08/02/23 Range/Units 07:38 07:38 07:38 WBC 9.8 (3.8-10.6) k/uL RBC 3.90 (3.80-5.40) m/uL Hgb 12.5 (11.4-16.0) gm/dL Hct 35.2 (34.0-46.0) % MCV 90.3 (80.0-100.0) fL MCH 32.1 (25.0-35.0) pg MCHC 35.5 (31.0-37.0) g/dL RDW 13.0 (11.5-15.5) % Plt Count 255 (150-450) k/uL MPV 8.2 Neutrophils % 73 % Lymphocytes % 19 % Monocytes % 5 % Eosinophils % 2 % Basophils % 0 % Neutrophils # 7.2 (1.3-7.7) k/uL Lymphocytes # 1.8 (1.0-4.8) k/uL Monocytes # 0.5 (0-1.0) k/uL Eosinophils # 0.2 (0-0.7) k/uL Basophils # 0.0 (0-0.2) k/uL Sodium 140 (137-145) mmol/L Potassium 4.4 (3.5-5.1) mmol/L Chloride 107 (98-107) mmol/L Carbon Dioxide 23 (22-30) mmol/L Anion Gap 10 mmol/L BUN 12 (7-17) mg/dL Creatinine 0.68 (0.52-1.04) mg/dL Est GFR (CKD-EPI)AfAm >90 (>60 ml/min/1.73 sqM) Est GFR (CKD-EPI)NonAf >90 (>60 ml/min/1.73 sqM) Glucose 106 H (74-99) mg/dL Plasma Lactic Acid Timothy (0.7-2.0) mmol/L Calcium 9.4 (8.4-10.2) mg/dL Total Bilirubin 0.6 (0.2-1.3) mg/dL AST 23 (14-36) U/L ALT 15 (4-34) U/L Alkaline Phosphatase 38 (38-126) U/L Total Protein 6.7 (6.3-8.2) g/dL Albumin 3.7 (3.5-5.0) g/dL Lipase 207 (23-300) U/L Urine Color Yellow Urine Appearance Cloudy H (Clear) Urine pH 6.0 (5.0-8.0) Ur Specific [place] 1.025 (1.001-1.035) Urine Protein Trace H (Negative) Urine Glucose (UA) Negative (Negative) Urine Ketones Negative (Negative) Urine Blood Negative (Negative) Urine Nitrite Negative (Negative) Urine Bilirubin Negative (Negative) Urine Urobilinogen <2.0 (<2.0) mg/dL Ur Leukocyte Esterase Small H (Negative) Urine RBC 2 (0-5) /hpf Urine WBC 4 (0-5) /hpf Ur Squamous Epith Cells 10 H (0-4) /hpf Calcium Oxalate Crystal Occasional H (None) /hpf Urine Bacteria Rare H (None) /hpf Urine Mucus Moderate H (None) /hpf 08/02/23 Range/Units 07:38 WBC (3.8-10.6) k/uL RBC (3.80-5.40) m/uL Hgb (11.4-16.0) gm/dL Hct (34.0-46.0) % MCV (80.0-100.0) fL MCH (25.0-35.0) pg MCHC (31.0-37.0) g/dL RDW (11.5-15.5) % Plt Count (150-450) k/uL MPV Neutrophils % % Lymphocytes % % Monocytes % % Eosinophils % % Basophils % % Neutrophils # (1.3-7.7) k/uL Lymphocytes # (1.0-4.8) k/uL Monocytes # (0-1.0) k/uL Eosinophils # (0-0.7) k/uL Basophils # (0-0.2) k/uL Sodium (137-145) mmol/L Potassium (3.5-5.1) mmol/L Chloride (98-107) mmol/L Carbon Dioxide (22-30) mmol/L Anion Gap mmol/L BUN (7-17) mg/dL Creatinine (0.52-1.04) mg/dL Est GFR (CKD-EPI)AfAm (>60 ml/min/1.73 sqM) Est GFR (CKD-EPI)NonAf (>60 ml/min/1.73 sqM) Glucose (74-99) mg/dL Plasma Lactic Acid Timothy 1.1 (0.7-2.0) mmol/L Calcium (8.4-10.2) mg/dL Total Bilirubin (0.2-1.3) mg/dL AST (14-36) U/L ALT (4-34) U/L Alkaline Phosphatase (38-126) U/L Total Protein (6.3-8.2) g/dL Albumin (3.5-5.0) g/dL Lipase (23-300) U/L Urine Color Urine Appearance (Clear) Urine pH (5.0-8.0) Ur Specific [place] (1.001-1.035) Urine Protein (Negative) Urine Glucose (UA) (Negative) Urine Ketones (Negative) Urine Blood (Negative) Urine Nitrite (Negative) Urine Bilirubin (Negative) Urine Urobilinogen (<2.0) mg/dL Ur Leukocyte Esterase (Negative) Urine RBC (0-5) /hpf Urine WBC (0-5) /hpf Ur Squamous Epith Cells (0-4) /hpf Calcium Oxalate Crystal (None) /hpf Urine Bacteria (None) /hpf Urine Mucus (None) /hpf - EKG Data -: EKG Interpreted by Me EKG Comments: EKG performed at 9: 55 sinus rhythm with a rate of 69 CT 156 QRS 89 QT/QTc 388/408 Disposition Clinical Impression: Appendicitis Disposition: ADMITTED IP TO THIS HOSP Condition: Fair Time of Disposition: 09:35
[2023-08-02] MEDS: SODIUM CHLORIDE 0.9% 1,000 ML IV STA (07:45)
[2023-08-02] MEDS: ONDANSETRON 4 MG/2 ML VIAL IVP STA (07:46)
[2023-08-02] MEDS: KETOROLAC 15 MG/ML 1 ML VIAL IVP STA (07:46)
[2023-08-02] MEDS: SODIUM CHLORIDE 0.9% 500 ML 500 ML IV STA (07:47)
[2023-08-02 08:13] LABS: ALT 15 U/L (4-34); AST 23 U/L (14-36); African American GFR (CKD) >90 (>60 ml/min/1.73 sqM); Albumin 3.7 g/dL (3.5-5.0); Alkaline Phosphatase 38 U/L (38-126); Anion Gap 10 mmol/L; Blood Urea Nitrogen 12 mg/dL (7-17); Calcium 9.4 mg/dL (8.4-10.2); Carbon Dioxide 23 mmol/L (22-30); Chloride 107 mmol/L (98-107); Glucose 106 mg/dL (74-99); Lipase 207 U/L (23-300); Non-African American GFR(CKD) >90 (>60 ml/min/1.73 sqM); Potassium 4.4 mmol/L (3.5-5.1); Sodium 140 mmol/L (137-145); Total Bilirubin 0.6 mg/dL (0.2-1.3); Total Protein 6.7 g/dL (6.3-8.2)
[2023-08-02 08:27] LABS: Appearance,Urine Cloudy (Clear); Bacteria,Urine Rare /hpf; Bilirubin,Urine Negative (Negative); Blood,Urine Negative (Negative); Calcium Oxalate Crystals,Urine Occasional /hpf; Color,Urine Yellow; Glucose,Urine (UA) Negative (Negative); Ketones,Urine Negative (Negative); Leukocyte Esterase,Urine Small (Negative); Mucus,Urine Moderate /hpf; Nitrite,Urine Negative (Negative); Protein,Urine Trace (Negative); RBC,Urine 2 /hpf (0-5); Specific Gravity,Urine 1.025 (1.001-1.035); Squamous Epithelial Cell,Urine 10 /hpf (0-4); Urobilinogen,Urine <2.0 mg/dL (<2.0); WBC,Urine 4 /hpf (0-5)
[2023-08-02 08:34] LABS: Basophils % (A) 0 %; Eosinophils # (A) 0.2 k/uL (0-0.7); Eosinophils % (A) 2 %; HCT 35.2 % (34.0-46.0); HGB 12.5 gm/dL (11.4-16.0); Lymphocytes # (A) 1.8 k/uL (1.0-4.8); Lymphocytes % (A) 19 %; MCH 32.1 pg (25.0-35.0); MCHC 35.5 g/dL (31.0-37.0); MCV 90.3 fL (80.0-100.0); Mean Platelet Volume 8.2; Monocytes # (A) 0.5 k/uL (0-1.0); Monocytes % (A) 5 %; Neutrophils # (A) 7.2 k/uL (1.3-7.7); Neutrophils % (A) 73 %; Platelet Count 255 k/uL (150-450); WBC 9.8 k/uL (3.8-10.6)
--- NOTE | 2023-08-02 08:50 | CT ---
EXAMINATION TYPE: CT abdomen pelvis w con DATE OF EXAM: 08/02/2023 COMPARISON: 09/10/2018 HISTORY: 48-year-old female Rt sided pain TECHNIQUE: Contiguous axial scanning of the abdomen and pelvis following administration of 100 ml Iso rene 300 IV contrast. Delayed images through the kidneys and coronal/sagittal reconstructions perform ed. CT DLP: 2813.9 mGycm Automated exposure control for dose reduction was used. FINDINGS: LUNG BASES: Slight posterior pleural thickening at the bilateral lung bases likely relating to areas of dependent atelectasis. LIVER/GB: Gallbladder surgically absent. Otherwise, no significant abnormality is appreciated. PANCREAS: No significant abnormality is seen. SPLEEN: No significant abnormality is seen. ADRENALS: No significant abnormality is seen. KIDNEYS: No significant abnormality is seen. LYMPH NODES: No significant abnormality is seen. BOWEL: Small hiatal hernia. No dilated small bowel, free fluid, or free air. The appendix is mildly thickened at 7 mm and shows some surrounding fat stranding, coronal image 52 and axial images 57 and 58. A couple adjacent trace foci of interloop fluid measuring up to 1 cm. Moderate stool in the right side of the colon. Mild circumferential wall thickening distal sigmoid colon may be due to nondisten tion or adherent stool material. PELVIS: Uterus surgically absent. Neither ovary is visualized. No abnormal fluid collection in the pe lvis or pelvic lymphadenopathy. OTHER: No significant abnormality is seen. BONES: Mild degenerative change in both hips. Facet arthropathy lower lumbar spine. Trace grade 1 ret rolisthesis L4-L5. IMPRESSION: 1. BORDERLINE TO MILD THICKENING OF THE APPENDIX UP TO 7 MM. THE PROXIMAL TO MIDPORTION SHOWS SLIGHT SURROUNDING FAT STRANDING. FURTHER CLINICAL CORRELATION RECOMMENDED FOR POSSIBLE EARLY ACUTE APPENDIC ITIS. A COUPLE TINY FOCI OF INTERLOOP FREE FLUID JUST ADJACENT MAY BE REACTIVE. 2. MILD CIRCUMFERENTIAL WALL THICKENING DISTAL SIGMOID COLON MAY BE DUE TO INCOMPLETE DISTENTION OR A DHERENT STOOL MATERIAL. A NONSPECIFIC MILD DISTAL COLITIS IS ALSO POSSIBLE. 3. SMALL HIATAL HERNIA.
[2023-08-02] MEDS ORDERED: NALOXONE 0.4 MG/ML 1 ML VIAL IV PRN (09:35)
[2023-08-02] MEDS: SODIUM CHLORIDE 0.9% 1,000 ML IV SCH (09:48)
[2023-08-02] MEDS: metroNIDAZOLE-NS PMX 500 MG in SALINE 1 100ML.BAG IVPB SCH (09:48)
[2023-08-02] MEDS: HYDROmorphone 0.5 MG/0.5 ML SYRINGE IVP STA (09:54)
[2023-08-02] MEDS: MORPHINE SULFATE 2 MG/ML SYRINGE IV PRN (12:05)
[2023-08-02] MEDS ORDERED: HYDROmorphone 0.5 MG/0.5 ML SYRINGE IVP PRN (13:01)
[2023-08-02] MEDS: ONDANSETRON 4 MG/2 ML VIAL IVP PRN (13:14)
--- NOTE | 2023-08-02 14:02 | P.GSHP ---
History of Present Illness H&P Date: 08/02/23 CHIEF COMPLAINT: Abdominal pain HISTORY OF PRESENT ILLNESS: This is a 48-year-old female who presented to the hospital with complaints of right lower quadrant abdominal pain that started 3 days ago. She has been having nausea. Denies any vomiting. Denies any fevers chills or sweats. Patient reports that when the pain initially started on Monday she was rating the pain about a 10 out of 10. This morning the pain did reach 10 again. And therefore she came into the ER for evaluation. CT scan had reported borderline mild thickening of the appendix and some fat stranding. Patient started on antibiotics for possible appendicitis. Patient reports endings felt similar to when she had her endometriosis or ruptured ovarian cyst. However she has had a hysterectomy and bilateral oophorectomy. PAST MEDICAL HISTORY: See list. PAST SURGICAL HISTORY: See list. MEDICATIONS: See list. ALLERGIES: See list. SOCIAL HISTORY: No illicit drug use. REVIEW OF SYSTEMS: CONSTITUTIONAL: Denies fever or chills. HEENT: Denies blurred vision, vision changes, or eye pain. Denies hemoptysis ENDOCRINE: Denies heat or cold intolerance. CARDIOVASCULAR: Denies chest pain or pressure. RESPIRATORY: No shortness of breath. GASTROINTESTINAL: Denies abdominal pain. Denies nausea or vomiting. NEURO: Denies history of seizures. PSYCH: No depression or suicidal ideation HEMATOLOGIC: Denies bleeding disorders. LYMPHATIC: The patient denies any lumps and bumps around the neck. GENITOURINARY: Denies any blood in urine or increased urinary frequency. MUSCULOSKELETAL: Denies myalgias. Denies joint swelling. Denies decreased range of motion beyond patients baseline. SKIN: Denies pruitis. Denies rash. PHYSICAL EXAM: VITAL SIGNS: Reviewed GENERAL: Well-developed in no acute distress. HEENT: No sclera icterus. Extraocular movements grossly intact. Moist buccal mucosa. Head is atraumatic, normocephalic. Hears conversational speech. No nasal drainage. NECK: Supple without lymphadenopathy. CHEST: Non-labored respirations and equal bilateral excursions. CARDIOVASCULAR: Palpable 2+ radial pulses. ABDOMEN: Soft. Nondistended. Tenderness to palpation right lower quadrant MUSCULOSKELETAL: No clubbing or cyanosis. NEUROLOGIC: No focal or lateralizing signs. Cranial nerves II through XII grossly intact. PSYCH: Appropriate affect. Alert and oriented to person, place and time. SKIN: Well perfused. Good skin turgor. LABORATORY DATA: WBC 9.8 Hgb 12.5 platelets 255 Sodium is 140 potassium 4.4 creatinine 0.68 Lactic acid 1.1 LFTs normal IMAGING: CT scan abdomen pelvis reports borderline to mild thickening of the appendix measuring up to 7 mm. Proximal midportion shows slight surrounding fat stranding. Possible early acute appendicitis. A couple tiny foci of interloop free fluid just adjacent may be reactive. Circumferential wall thickening distal sigmoid colon may be due to to incomplete distention or stool material. Nonspecific distal colitis also possible. Small hiatal hernia. ASSESSMENT: 1. Acute appendicitis 2. History of hypothyroidism PLAN: -Patient scheduled for Robotic appendectomy today with Dr. Mclean -make patient NPO -Continue antibiotics -Continue pain management -Continue IV fluids -Continue antiemetics Physician Domestic Housekeeper note has been reviewed by physician. Signing provider agrees with the documented findings, assessment, and plan of care. Past Medical History Additional Past Medical History / Comment(s): hx rapid heart beat History of Any Multi-Drug Resistant Organisms: None Reported Past Surgical History: Cholecystectomy, Hernia Repair, Hysterectomy, Uterine Ablation Additional Past Surgical History / Comment(s): LAPAROSCOPIES. D & C. COLONOSCOPY. HEMORRHOIDECTOMY. SPHINCTEROTOMY. FISTULOTOMY. FISTULOTOMY Past Anesthesia/Blood Transfusion Reactions: Motion Sickness, Postoperative Nausea & Vomiting (PONV) Past Psychological History: Depression Smoking Status: Never smoker Past Alcohol Use History: Occasional Past Drug Use History: None Reported - Past Family History Mother History Unknown: Yes Father Additional Family Medical History / Comment(s): "HEART ISSUES" Medications and Allergies Home Medications Medication Instructions Recorded Confirmed Type nadoloL [Nadolol] 40 mg PO HS 04/23/15 08/02/23 History Levothyroxine Sodium [Synthroid] 75 mcg PO DAILY 08/02/23 08/02/23 History Progesterone, Micronized 200 mg PO HS 08/02/23 08/02/23 History [Progesterone] Sertraline [Zoloft] 25 mg PO HS 08/02/23 08/02/23 History Allergies Allergy/AdvReac Type Severity Reaction Status Date / Time Penicillins Allergy Unknown Verified 08/02/23 07:01 Childhood Sulfa (Sulfonamide Allergy Unknown Verified 08/02/23 07:01 Antibiotics) Childhood Surgical - Exam Vital Signs Temp Pulse Resp BP Pulse Ox 98 F 83 18 113/65 94 L 08/02/23 06:59 08/02/23 06:59 08/02/23 06:59 08/02/23 06:59 08/02/23 06:59 Results - Labs 08/02/23 07:38 08/02/23 07:38 Abnormal Lab Results - Last 24 Hours (Table) 08/02/23 08/02/23 Range/Units 07:38 07:38 Glucose 106 H (74-99) mg/dL Urine Appearance Cloudy H (Clear) Urine Protein Trace H (Negative) Ur Leukocyte Esterase Small H (Negative) Ur Squamous Epith Cells 10 H (0-4) /hpf Calcium Oxalate Crystal Occasional H (None) /hpf Urine Bacteria Rare H (None) /hpf Urine Mucus Moderate H (None) /hpf Diabetes panel 08/02/23 Range/Units 07:38 Sodium 140 (137-145) mmol/L Potassium 4.4 (3.5-5.1) mmol/L Chloride 107 (98-107) mmol/L Carbon Dioxide 23 (22-30) mmol/L BUN 12 (7-17) mg/dL Creatinine 0.68 (0.52-1.04) mg/dL Glucose 106 H (74-99) mg/dL Calcium 9.4 (8.4-10.2) mg/dL AST 23 (14-36) U/L ALT 15 (4-34) U/L Alkaline Phosphatase 38 (38-126) U/L Total Protein 6.7 (6.3-8.2) g/dL Albumin 3.7 (3.5-5.0) g/dL Calcium panel 08/02/23 Range/Units 07:38 Calcium 9.4 (8.4-10.2) mg/dL Albumin 3.7 (3.5-5.0) g/dL Pituitary panel 08/02/23 Range/Units 07:38 Sodium 140 (137-145) mmol/L Potassium 4.4 (3.5-5.1) mmol/L Chloride 107 (98-107) mmol/L Carbon Dioxide 23 (22-30) mmol/L BUN 12 (7-17) mg/dL Creatinine 0.68 (0.52-1.04) mg/dL Glucose 106 H (74-99) mg/dL Calcium 9.4 (8.4-10.2) mg/dL Adrenal panel 08/02/23 Range/Units 07:38 Sodium 140 (137-145) mmol/L Potassium 4.4 (3.5-5.1) mmol/L Chloride 107 (98-107) mmol/L Carbon Dioxide 23 (22-30) mmol/L BUN 12 (7-17) mg/dL Creatinine 0.68 (0.52-1.04) mg/dL Glucose 106 H (74-99) mg/dL Calcium 9.4 (8.4-10.2) mg/dL Total Bilirubin 0.6 (0.2-1.3) mg/dL AST 23 (14-36) U/L ALT 15 (4-34) U/L Alkaline Phosphatase 38 (38-126) U/L Total Protein 6.7 (6.3-8.2) g/dL Albumin 3.7 (3.5-5.0) g/dL
[2023-08-02] MEDS: ACETAMINOPHEN IV (For NPO) 1,000 MG in EMPTY BAG 1 BAG IVPB SCH (15:31)
[2023-08-02] MEDS ORDERED: METOCLOPRAMIDE 5 MG/ML 2 ML VIAL ONE (16:04)
[2023-08-02] MEDS: LACTATED RINGERS 1,000 ML IV ONE ×2 (16:10→18:05)
[2023-08-02] MEDS: DEXAMETHASONE SOD PHOSPHATE 4 MG/ML 1 ML VIAL IVP ONE (16:35)
[2023-08-02] MEDS: METOCLOPRAMIDE 5 MG/ML 2 ML VIAL IVP ONE (16:36)
[2023-08-02] MEDS: SCOPOLAMINE 1 MG/72 HR PATCH TRANSDERM ONE (16:36)
[2023-08-02] MEDS: HEPARIN SODIUM,PORCINE 5,000 UNIT/ML 1 ML VIAL SQ ONE (17:03)
[2023-08-02] MEDS ORDERED: ROCURONIUM 10 MG/ML (5 ML VIAL) IV ONE (17:06)
[2023-08-02] MEDS ORDERED: PHENYLEPHRINE-0.9% NACL SYG 1,000 MCG/10 ML SYRINGE ONE (17:06)
[2023-08-02] MEDS ORDERED: fentaNYL (PF) 50 MCG/ML 2 ML AMP ONE (17:06)
[2023-08-02] MEDS ORDERED: HYDROmorphone (PF) 1 MG/ML ONE (17:06)
[2023-08-02] MEDS ORDERED: LIDOCAINE 1% INJ 10MG/ML (20 ML MDV) ONE (17:06)
[2023-08-02] MEDS ORDERED: GLYCOPYRROLATE 0.2 MG/ML 2 ML VIAL ONE (17:06)
[2023-08-02] MEDS ORDERED: NEOSTIGMINE 1 MG/ML 10 ML VIAL ONE (17:06)
[2023-08-02] MEDS ORDERED: SUCCINYLCHOLINE CHLORIDE 200 MG/10 ML VIAL IV ONE (17:06)
[2023-08-02] MEDS ORDERED: ceFAZolin 1 GM/50 ML BAG (PMX) ONE (17:06)
[2023-08-02] MEDS: LIDOCAINE 1%-EPI 1:100,000 50 ML VIAL SQ ONE ×2 (17:46→17:48)
[2023-08-02] MEDS ORDERED: HYDROmorphone 1 MG/ML 1 ML SYRINGE IVP PRN (18:55)
--- NOTE | 2023-08-02 19:02 | P.OP ---
Date of Procedure: 08/02/23 Description of Procedure: SURGEON: DANITZA DODGE MD Preoperative Diagnosis: 1. Acute appendicitis 2. Severe right lower quadrant abdominal pain 3. Morbid obesity due to excess calories, BMI 45.7 4. History of endometriosis 5. Hypothyroidism 6. Depressive disorder Postoperative Diagnosis: 1. Acute appendicitis 2. Severe right lower quadrant abdominal pain 3. Morbid obesity due to excess calories, BMI 45.7 4. History of endometriosis 5. Hypothyroidism 6. Depressive disorder 7. Epiploic appendagitis, ascending colon Procedure(s) Performed: 1. Robotic-assisted daVinci Xi laparoscopic appendectomy 2. Excision of epiploic appendagitis, ascending colon Anesthesia: GETA, local Estimated Blood Loss (ml): 5 Pathology: other (appendix) Condition: stable Disposition: floor Operative Findings: 1. Acute appendicitis without rupture with periappendicitis 2. Terminal ileum unremarkable 3. Cecum unremarkable 5. Epiploic appendagitis, involving proximal ascending colon, right lower quadrant pain INDICATIONS: The patient is a 48-year-old male who presents with acute appendic itis. Benefits and risks, including infection, open surgery, and bleeding for additional surgery was discussed at length. Informed consent was obtained. All questions of the patient and family were answered. DESCRIPTION: The patient was transferred to the operating room and placed in supine position. The patient had previously voided. The abdomen was then prepped and draped in standard sterile fashion as Ioban was placed along the abdomen to minimize any contamination of skin floor. After a timeout protocol was performed, attention was then brought to the left upper quadrant whereby a 0 degree 5 mm laparoscopic trocar entry was performed. The abdominal cavity was entered and insufflated to 12 mmHg pressure, which was tolerated well. Diagnostic laparoscopy demonstrated no injury to bowel, viscera or mesentery. Next a robotic 8-mm trocar was placed along the left lower quadrant, 10-cm lateral to the midline. A 12 mm port was placed along the left upper quadrant and another 8-mm port left lateral abdominal wall. Ports were placed 8 cm apart from each other including 15-20 cm away from the target anatomy of the right pelvis. The patient was then placed in Trendelenburg position, at least 14 down and right side up at least 7. The robotic da David XI system was primed and docked from the left side of the patient. Using atraumatic graspers and vessel sealer, the robotic system was docked and primed as described. Instruments were interchanged by the assistant construction superintendent including graspers, robotic stapler and vessel sealer. Next, attention was brought to identify the cecum. A systematic view within the abdominal cavity was started with the small bowel which was unremarkable. The base of the cecum was unremarkable. The appendix was right upper quadrant including epiploic appendagitis 1-cm, of infarcted fat involving the proximal ascending colon, resected using vessel sealer. The body of the appendix was moderately dilated with moderate periappendicitis. No per foration was identified. The appendix was dissected free from its surrounding tissues. White 45 mm robotic staple loads were fired along the base of the appendix. The staple line was hemostatic. Hemostasis was checked prior to undocking the robot. The robot was undocked. I re-scrubbed into the case. The specimen was removed from the abdominal cavity with an Endo Catch bag through the 12 mm trocar at the left upper quadrant. All instruments and pneumoperitoneum were evacuated from the abdominal cavity. Local anesthetic was infiltrated to all wounds for postop analgesia. All incisions were also cleansed with diluted hydrogen peroxide. The incisions were closed with 4-0 Monocryl. Exofin glue was applied to the rest of the skin incisions. The patient had tolerated the procedure well. The patient was extubated successfully. The patient was transferred to the postanesthesia care unit in stable condition.
[2023-08-02] MEDS: MORPHINE SULFATE 2 MG/ML SYRINGE ONE (20:06)
[2023-08-02] MEDS: ONDANSETRON 4 MG/2 ML VIAL ONE (20:07)
[2023-08-02] MEDS: KETOROLAC 15 MG/ML 1 ML VIAL IVP SCH (20:17)
[2023-08-02] MEDS: SCOPOLAMINE 1 MG/72 HR PATCH TRANSDERM STA (20:22)
[2023-08-02] MEDS: SODIUM CHLORIDE 0.9% 1,000 ML IV ONE ×2 (20:22→22:05)
[2023-08-02] MEDS: TRIMETHOBENZAMIDE 100 MG/ML 2 ML VIAL IM STA (22:06)
[2023-08-02] MEDS: NON FORMULARY DRUG (Progesterone, Micronized [Progesterone] 200 MG Capsule) PO SCH (22:11)
[2023-08-02] MEDS: SIMETHICONE 80 MG CHEWABLE PO SCH (22:12)
[2023-08-02] MEDS: SERTRALINE 25 MG TAB PO SCH (22:20)
[2023-08-03] MEDS: LEVOTHYROXINE 75 MCG TAB PO SCH (05:35)
[2023-08-03 06:14] VITALS: RESP 20
[2023-08-03 09:07] VITALS: BP 103/67; PULSE 70; TEMP 98
[2023-08-03] MEDS: HEPARIN SODIUM,PORCINE 5,000 UNIT/ML 1 ML VIAL SQ SCH (09:28)
[2023-08-03] MEDS: ACETAMINOPHEN TAB 500 MG TAB PO SCH (11:35)
--- NOTE | 2023-08-03 11:55 | P.DS ---
Providers Date of admission: 08/02/23 09:42 Expected date of discharge: 08/03/23 Attending physician: Mona Mclean Primary care physician: Tyson Branch [facility] Course: Discharge diagnosis 1. Acute appendicitis 2. Severe right lower quadrant abdominal pain 3. Morbid obesity due to excess calories, BMI 45.7 4. History of endometriosis 5. Hypothyroidism 6. Depressive disorder 7. Epiploic appendagitis, ascending colon Hospital course This is a 48-year-old female who presented to the hospital with right lower quadrant abdominal pain. CT scan had reported borderline mild thickening of the appendix and some fat stranding. Patient is status post robotic assisted laparoscopic appendectomy and excision of epiploic appendagitis of the ascending colon. Patient is tolerating diet. Her pain is controlled. She has been up and ambulating she is having flatus. She is afebrile. She is stable for discharge. Physician Fleet Coordinator note has been reviewed by physician. Signing provider agrees with the documented findings, assessment, and plan of care. Patient Condition at Discharge: Stable Plan - Discharge Summary New Discharge Prescriptions: New Ibuprofen [Motrin] 600 mg PO Q8HR PRN #30 tab PRN Reason: Pain Acetaminophen Tab [Tylenol Tab] 1,000 mg PO Q6HR PRN #30 tablet PRN Reason: Pain Simethicone [Gas-X] 125 mg PO AC-TID PRN #20 capsule PRN Reason: Pain Continue nadoloL [Nadolol] 40 mg PO HS Sertraline [Zoloft] 25 mg PO HS Levothyroxine Sodium [Synthroid] 75 mcg PO DAILY Progesterone, Micronized [Progesterone] 200 mg PO HS Discharge Medication List nadoloL [Nadolol] 40 mg PO HS 04/23/15 [History] Acetaminophen Tab [Tylenol Tab] 1,000 mg PO Q6HR PRN #30 tablet 08/02/23 [Rx] Ibuprofen [Motrin] 600 mg PO Q8HR PRN #30 tab 08/02/23 [Rx] Levothyroxine Sodium [Synthroid] 75 mcg PO DAILY 08/02/23 [History] Progesterone, Micronized [Progesterone] 200 mg PO HS 08/02/23 [History] Sertraline [Zoloft] 25 mg PO HS 08/02/23 [History] Simethicone [Gas-X] 125 mg PO AC-TID PRN #20 capsule 08/02/23 [Rx] Follow up Appointment(s)/Referral(s): Mona Mclean MD [STAFF PHYSICIAN] - 08/08/23 (TELEHEALTH - WILL CALL YOU AT HOME BETWEEN 8 am and 8 pm) Tyson Branch DO [Primary Care Provider] - 08/07/23 2:20 pm Patient Instructions/Handouts: Laparoscopic Appendectomy (GEN) Activity/Diet/Wound Care/Special Instructions: NO LIFTING OVER 10 pounds for 2 weeks, August 15 Using antibacterial soap. May shower. No bathtub soaks for 2 weeks, August 15 Wear abdominal binder daily for comfort except for showering. Use ice along incisions for today to prevent swelling. Use Tylenol, simethicone and ibuprofen or Aleve scheduled for the next 24-48 hours for best pain relief. Discharge Disposition: HOME SELF-CARE
[2023-08-03] MEDS ORDERED: metroNIDAZOLE 500 MG TAB PO SCH (16:00)
== END 2023-08-03 11:57 | disposition home or self-care (01) ==
LOC: EC 06:49 → 5NMEDONC 09:42
PROVIDERS: ADMIT Surgery Plastic and Reconstructive Surgery; ATTEND Surgery Plastic and Reconstructive Surgery
DX: K35.80 Unspecified acute appendicitis (principal); K63.89 Other specified diseases of intestine; E03.9 Hypothyroidism, unspecified; K44.9 Diaphragmatic hernia without obstruction or gangrene; E66.01 Morbid (severe) obesity due to excess calories; Z68.42 Body mass index [BMI] 45.0-49.9, adult; F32.A Depression, unspecified; Z79.890 Hormone replacement therapy; Z88.0 Allergy status to penicillin; Z88.2 Allergy status to sulfonamides; Z95.5 Presence of coronary angioplasty implant and graft; Z90.710 Acquired absence of both cervix and uterus; Z90.722 Acquired absence of ovaries, bilateral; Z87.42 Personal history of other diseases of the female genital tract
CPT/HCPCS: 44970; S2900; 36415; 74177; 80053; 81001; 83605; 83690; 85025; 87040; 88304; 93005; 96361; 96365; 96372; 96375; 96376; 99285

== ENCOUNTER → 2023-09-07 | Outpatient (CLI) | payer MEDICAID, OTHER ==
--- NOTE | 2023-09-07 09:48 | CT ---
EXAMINATION TYPE: CT abdomen pelvis wo con DATE OF EXAM: 09/07/2023 COMPARISON: 08/02/2023 HISTORY: right sided pain/pressure CT DLP: 1876 mGycm Automated exposure control for dose reduction was used. TECHNIQUE: Helical acquisition of images was performed from the lung bases through the pelvis. FINDINGS: The lungs are clear. There is surgical absence of the gallbladder. There is no biliary ductal dilatation. There is no organomegaly of the liver, pancreas, spleen or adrenal glands. There are no renal calcifications or hydronephrosis. The caliber of the abdominal aorta is normal and there is no retroperitoneal adenopathy or hemorrhage . The bowel loops are normal in caliber is no evidence of obstruction. No inflammatory changes are iden tified in the mesentery and there is no free intraperitoneal air or fluid. Patient is status post eugene endectomy. There is no pelvic mass, free fluid, abscess or adenopathy. There is surgical absence of the uterus. The osseous structures and soft tissues are unremarkable. IMPRESSION: Appendectomy, hysterectomy and cholecystectomy. No other significant abnormality seen. No acute saravia es within the abdomen or pelvis.
== END | disposition home or self-care (01) ==
LOC: RADCTMAIN 07:08
PROVIDERS: ATTEND Surgery Plastic and Reconstructive Surgery
DX: N20.0 Calculus of kidney (principal)
CPT/HCPCS: 74176

== ENCOUNTER → 2024-07-12 | Outpatient (CLI) | payer MEDICAID ==
--- NOTE | 2024-07-15 08:19 | MM ---
Reason for Exam: Screening (asymptomatic). Last mammogram was performed 1 year(s) and 10 month(s) ago. Patient History: Menarche at age 11. First Full-Term at age 21. Left ovary removed at age 44. Right ovary removed at age 44. Hysterectomy at age 44. Postmenopausal. Patient used Hormonal Contraceptives for 27 years. 1997, Stereotactic Core Biopsy on the Right side. Risk Values: Rachael 5 year model risk: 1.0%. NCI Lifetime model risk: 9.4%. Prior Study Comparison: 10/12/2017 Left Diagnostic Mammogram, [facility]. 07/28/2021 Bilateral Screening Mammogram, [facility]. 08/19/2022 Bilateral MG 3D screening mammo w/cad, [facility]. Tissue Density: The breasts are heterogeneously dense, which may obscure small masses. Findings: Analyzed By CAD. Old asymmetry medial right breast is unchanged. Chronic nodularity lateral left CC view redemonstrated. There is no suspicious group of microcalcifications or new suspicious mass in either breast. Overall Assessment: Benign, BI-RAD 2 Management: Screening Mammogram of both breasts in 1 year. Patient should continue monthly self-breast exams. A clinical breast exam by your physician is recommended on an annual basis. This exam should not preclude additional follow-up of suspicious palpable abnormalities. Note on Rachael scores and lifetime risk: 1. A Rachael score greater than 3% is considered moderate risk. If this is the case, consider specialist referral to assess eligibility for a risk reducing agent. 2. If overall lifetime risk for the development of breast cancer is 20% or higher, the patient may qualify for future screening with alternating mammogram and breast MRI. [facility], , 07/15/2024 8:16 AM. Electronically signed and approved by: Fabiano Mitchell M.D. Radiologist
== END | disposition home or self-care (01) ==
LOC: RADMAMWWP 15:45
PROVIDERS: ATTEND Family Medicine
DX: Z12.31 Encounter for screening mammogram for malignant neoplasm of breast (principal); R92.333 Mammographic heterogeneous density, bilateral breasts; Z78.0 Asymptomatic menopausal state; Z92.0 Personal history of contraception
CPT/HCPCS: 77063; 77067

== ENCOUNTER → 2024-07-26 | Outpatient (CLI) | payer MEDICAID ==
--- NOTE | 2024-07-26 15:51 | US ---
EXAMINATION TYPE: US thyroid st tissue head/neck DATE OF EXAM: 07/26/2024 COMPARISON: US 2019 CLINICAL INDICATION: Female, 49 years old with history of R22.1 LOCALIZED SWELLING, MASS AND LUMP, NE CK; Lump right supraclavicular area since January 2024. TECHNIQUE: Grayscale and color Doppler imaging of the thyroid gland. FINDINGS: GLAND SIZE: Right Lobe: 3.0 x 1.1 x 1.2 cm Overall Parenchyma: Very heterogeneous. Left Lobe: 3.4 x 1.0 x 1.5 cm Overall Parenchyma: Very heterogeneous limiting evaluation for nodules Isthmus Thickness: 0.20 cm NODULES RIGHT: # of nodules measured on right: 1 1. 0.4 X 0.4 x 0.4 cm, upper mid, Prior size: Not seen TIRADS Score: 4 TIRADS Category 4: Composition: Solid or almost completely solid (2 points). Echogenicity: Hypoechoic (2 points). Shape: Wider than tall (0 points). Margin: Smooth (0 points). Echogenic foci: None or large comet-tail artifacts (0 points) Recommendation: If >1.5cm: FNA; If >1cm: Follow up at 1,2, 3,5 years LEFT: # of nodules measured on left: 1 1. 1.6 X 0.9 x 1.4 cm, lower lateral, Prior size: Not seen TIRADS Score: 4 TIRADS Category 4: Moderately Suspicious Composition: Solid or almost completely solid (2 points). Echogenicity: Hypoechoic (2 points). Shape: Wider than tall (0 points). Margin: Smooth (0 points). Echogenic foci: None or large comet-tail artifacts (0 points) Recommendation: If >1.5cm: FNA; If >1cm: Follow up at 1,2, 3,5 years ISTHMUS: # of nodules measured in the isthmus: 0 Bilateral neck scanned. No abnormalities seen. Scanned right supraclavicular area of palpable concern: 0.7 x 0.6 x 0.6 cm. IMPRESSION: 1. Heterogenous thyroid gland bilaterally which limits evaluation for nodules. Nodule on the left me ets criteria for tissue sampling of nodularity performed. Correlate with serum markers for thyroiditi s. 2. Imaging over the area of concern demonstrates a small 7 mm hypoechoic structure possibly represen ting a cyst possibly representing a sebaceous cyst. Short-term follow-up recommended. [facility], , 07/26/2024 3:49 PM
== END | disposition home or self-care (01) ==
LOC: RADUSWWP 15:12
PROVIDERS: ATTEND Family Medicine
DX: E04.2 Nontoxic multinodular goiter (principal); R22.1 Localized swelling, mass and lump, neck
CPT/HCPCS: 76536

== ENCOUNTER 2024-08-09 08:23 | Day surgery (SDC) | payer MEDICAID ==
[2024-08-09 09:56] VITALS: RESP 18; TEMP 97.9
--- NOTE | 2024-08-09 10:29 | US ---
EXAMINATION TYPE: US FNA thyroid first lesion DATE OF EXAM: 08/09/2024 10:17 AM COMPARISON: None. CLINICAL INDICATION: Female, 49 years old with history of E04.1 NONTOXIC SINGLE THYROID NODULE; , thy roid nodule TECHNIQUE/FINDINGS: The procedure was explained to the patient. The risks, complications, benefits and alternatives were discussed and any questions were answered. Informed consent was obtained. Patient was placed supin e on the ultrasound table and prepped and draped in the usual sterile fashion. Utilizing a 25 gauge needle, five passes were made into the requested left thyroid. Patient was stable throughout the procedure. Pathology is pending. All elements of maximal barrier technique were utilized. IMPRESSION: 1. Successful ultrasound guided FNA thyroid biopsy. [facility], , 08/09/2024 10:26 AM
[2024-08-09 13:54] VITALS: BP 114/72; PULSE 65
== END 2024-08-09 10:45 | disposition home or self-care (01) ==
LOC: RADPROMAIN 08:23
PROVIDERS: ATTEND Family Medicine
DX: E04.1 Nontoxic single thyroid nodule (principal)
CPT/HCPCS: 10005; 88173; 88305